=== PATIENT | female | born 1980 | race Caucasian/White ===

== ENCOUNTER 2024-07-13 07:10 | Day surgery (SDC) | payer OTHER ==
[~2024-07-13 07:10] MED LIST: Albuterol 0.083% 2.5 MG/3 ML Neb Soln NEB PRN; HYDROmorphone 1 MG/ML Syringe IVPUSH PRN; Metoclopramide 10 MG/2 ML SDV IVPUSH PRN; Morphine 2 MG/ML SYRINGE IVPUSH PRN; Naloxone 0.4 MG/ML SDV IVPUSH PRN; Ondansetron 4 MG/2 ML SDV IVPUSH PRN; Phenylephrine HCl In 0.9% NaCl 1 MG/10 ML Syringe IVPUSH PRN
[2024-07-13] MEDS ORDERED: Propofol 200 MG/20 ML SDV ONE (07:26)
[2024-07-13] MEDS ORDERED: Midazolam 1 MG/ML 2 ML SDV ONE (07:27)
[2024-07-13] MEDS ORDERED: fentaNYL 100 MCG/2 ML SDV ONE (07:27)
[2024-07-13] MEDS ORDERED: Ondansetron 4 MG/2 ML SDV ONE ×2 (07:28→07:29)
[2024-07-13] MEDS ORDERED: Lidocaine 1% 5 ML VIAL ONE (07:28)
[2024-07-13] MEDS ORDERED: Dexamethasone 4 MG/ML 5 ML MDV ONE (07:28)
[2024-07-13] MEDS: Scopalamine 1mg/3day Transdermal Patch TOP ONE (07:45)
[2024-07-13] MEDS: Lactated Ringers 1,000 ML IV SCH (08:12)
[2024-07-13] MEDS ORDERED: Ketorolac 30 MG/ML SDV ONE (08:54)
[2024-07-13] MEDS: fentaNYL 50 MCG/ML SDV IVPUSH PRN (09:45)
== END 2024-07-13 10:56 | disposition home or self-care (01) ==
LOC: MW.SDS 07:10
PROVIDERS: ATTEND Obstetrics & Gynecology
DX: N92.1 Excessive and frequent menstruation with irregular cycle (principal); N84.0 Polyp of corpus uteri; F41.9 Anxiety disorder, unspecified; F32.A Depression, unspecified; Z79.899 Other long term (current) drug therapy
CPT/HCPCS: 58353; A9270; C1729; J0131; J1100; J1885; J2250; J2405; J2704; J3010; J7120; 00952; J3490